=== PATIENT | male | born 1950 | race Caucasian/White ===

== ENCOUNTER 2017-02-17 16:53 | Emergency (ER) | payer SELFPAY ==
[~2017-02-17] VITALS: Ht 180.3 cm; Wt 99.8 kg
[2017-02-17] MEDS ORDERED: CODCAP PO (17:05)
[2017-02-17] MEDS ORDERED: ENAL20TA PO (17:05)
[2017-02-17] MEDS ORDERED: ALPH1CAP PO (17:05)
[2017-02-17] MEDS ORDERED: HYDR12.55 PO (17:05)
[2017-02-17] MEDS ORDERED: CARV25TA PO (17:05)
[2017-02-17] MEDS ORDERED: ENALAPRIL MALEATE 10 MG TAB PO ONE (17:30)
[2017-02-17] MEDS ORDERED: MORPHINE 4 MG/ML 1ML SYRINGE IV ONE (17:30)
[2017-02-17] MEDS ORDERED: hydroCHLOROthiazide 12.5 MG CAPSULE PO ONE (17:30)
[2017-02-17] MEDS ORDERED: CARVedilol 12.5 MG TAB PO ONE (17:30)
[2017-02-17 17:59] LABS: BASO % 0.3 % (0.0-1.0); EOS # 0.1 K/mm3 (0.0-0.50); EOS % 1.1 % (0.0-3.0); LARGE UNSTAINED CELL # 0.2 K/mm3 (0.0-0.4); LARGE UNSTAINED CELL % 1.8 % (0.0-4.0); LYMPH # 2.4 K/mm3 (1.5-4.5); MEAN CORPUSCULAR HEMOGLOBIN 30.3 pg (27.0-33.0); MEAN CORPUSCULAR HGB CONC 33.1 g/dl (32.0-36.5); MEAN CORPUSCULAR VOLUME 91.4 fl (80.0-96.0); MONO # 0.9 K/mm3 (0.0-0.8); MONO % 7.9 % (0.0-5.0); NEUTROPHILS # 7.9 K/mm3 (1.8-7.7); NEUTROPHILS % 69.9 % (36.0-66.0); PLATELET COUNT, AUTOMATED 272 k/mm3 (150-450); RED CELL DISTRIBUTION WIDTH 12.9 % (11.5-14.5); WHITE BLOOD COUNT 11.4 K/mm3 (4.0-10.0)
[2017-02-17 18:27] LABS: ANION GAP 6 MEQ/L (8-16); BLOOD UREA NITROGEN 18 MG/DL (7-18); CALCIUM LEVEL 8.7 MG/DL (8.8-10.2); CARBON DIOXIDE LEVEL 28 MEQ/L (21-32); CHLORIDE LEVEL 102 MEQ/L (98-107); CREATININE FOR GFR 1.17 MG/DL (0.70-1.30); GLOMERULAR FILTRATION RATE > 60.0 (>49); GLUCOSE, FASTING 155 MG/DL (80-110); POTASSIUM SERUM 3.8 MEQ/L (3.5-5.1); SODIUM LEVEL 136 MEQ/L (136-145); URIC ACID 7.9 MG/DL (3.5-7.2)
[2017-02-17 18:30] LABS: ERYTHROCYTE SEDIMENTATION RATE 5 mm/hr (0-20)
[2017-02-17] MEDS ORDERED: INDO50SU2 PR (18:58)
--- NOTE | 2017-02-17 19:30 | REPUSA ---
CLINICAL HISTORY: Right upper extremity edema COMMENTS: Real time sonography with duplex doppler of the right upper extremity was performed with attention to the major deep venous structures. The right internal jugular, cephalic, basilic, radial and ulnar veins all reveal complete lumen compr essibility without intraluminal thrombus. The right subclavian and axillary veins are also clear of t hrombus. There is normal spontaneous phasic flow and augmentation throughout the deep veins. IMPRESSION: No evidence of DVT in the right upper extremity. Thank you for your kind referral of this patient.
[2017-02-17 19:45] VITALS: BP 177/85
== END 2017-02-17 19:50 | disposition home or self-care (01) ==
LOC: M ED 17:36
DX: M10.9 Gout, unspecified (principal); I10 Essential (primary) hypertension; I25.10 Atherosclerotic heart disease of native coronary artery without angina pectoris; Z87.891 Personal history of nicotine dependence; Z79.899 Other long term (current) drug therapy